=== PATIENT | female | born 1955 | race Caucasian/White ===

== ENCOUNTER 2024-07-09 01:01 | Inpatient (IN) | payer MEDICARE ==
[~2024-07-09] VITALS: Ht 170.2 cm; Wt 63.0 kg
[2024-07-09] MEDS ORDERED: LAMO100T2 PO (01:17)
[2024-07-09] MEDS ORDERED: ASPI-1169 PO (01:17)
[2024-07-09] MEDS ORDERED: TEMA15CA PO (01:17)
[2024-07-09] MEDS ORDERED: TRAZ-182 PO (01:17)
[2024-07-09] MEDS ORDERED: ATOR20TA PO (01:17)
[2024-07-09] MEDS ORDERED: QUET25TA PO (01:17)
[2024-07-09] MEDS: IV NS 0.9% 1,000 ML BAG IV ONE (01:30)
[2024-07-09] MEDS ORDERED: CEFEPIME 1 GM VIAL ONE (01:33)
[2024-07-09] MEDS ORDERED: VANCOMYCIN 1 GM /D5W 250 ML PB IV ONE (01:33)
[2024-07-09] MEDS: CEFEPIME 1 GM in IV D5W 50 ML IV ONE (01:36)
[2024-07-09 01:37] LABS: BASOPHILS % (AUTO) 0.1 % (0.0-2.0); HEMATOCRIT 45 % (33-45); LYMPHOCYTES # (AUTO) 0.5 K/uL (0.8-4.8); LYMPHOCYTES % (AUTO) 2.5 % (20.0-44.0); MEAN CORPUSCULAR HEMOGLOBIN 30 PG (26.0-33.0); MEAN CORPUSCULAR HGB CONC 33 g/dl (31.0-36.0); MEAN CORPUSCULAR VOLUME 91 fL (82-100); MONOCYTES # (AUTO) 1.4 K/uL (0.1-1.30); MONOCYTES % (AUTO) 6.6 % (2.0-12.0); NEUTROPHILS # (AUTO) 19.7 K/uL (1.8-8.9); NEUTROPHILS % (AUTO) 90.8 % (43.0-81.0); PLATELET COUNT (AUTO) 245 K/uL (150-450); RED BLOOD CELL COUNT(AUTO) 4.95 MIL/uL (4.0-5.2); WHITE BLOOD COUNT (AUTO) 21.7 K/uL (4.3-11.0)
[2024-07-09 01:52] LABS: INR 0.97 (0.91-1.10); PARTIAL THROMBOPLASTIN TIME 27.5 SEC (24.3-34.3); PROTHROMBIN TIME 10.3 SECS (9.2-11.1)
[2024-07-09 01:58] LABS: ALANINE AMINOTRANSFERASE 18 U/L (12-78); ALBUMIN 3.5 g/dL (3.4-5.0); ALCOHOL, BLOOD < 3 mg/dL (0-10); ALKALINE PHOSPHATASE 115 U/L (46-116); ASPARTATE AMINOTRANSFERASE 12 U/L (15-37); BILIRUBIN,DIRECT 0.4 mg/dL (0.0-0.2); BILIRUBIN,TOTAL 1.2 mg/dL (0.2-1.0); CALCIUM, SERUM 10.5 mg/dL (8.5-10.1); CARBON DIOXIDE 19 mmol/L (21-32); CHLORIDE 100 mmol/L (98-107); CREATININE 1.1 mg/dL (0.6-1.3); GLUCOSE 228 mg/dL (74-106); POTASSIUM 3.7 mmol/L (3.5-5.1); SALICYLATE 6.5 mg/dL (2.8-20.0); SODIUM SERUM 133 mmol/L (136-145); TOTAL PROTEIN, SERUM 7.1 g/dL (6.4-8.2); UREA NITROGEN, BLOOD 17 mg/dL (7-18)
[2024-07-09 01:59] LABS: ACETAMINOPHEN <10 ug/ml (10-30)
[2024-07-09 02:00] LABS: LACTIC ACID 7.1 mmol/L (0.4-2.0)
[2024-07-09] MEDS: VANCOMYCIN 1 GM in IV D5W 250 ML IV ONE (02:06)
[2024-07-09 02:11] LABS: APPEARANCE,URINE TURBID (CLEAR); BILIRUBIN,URINE 3+ (NEGATIVE); BLOOD, URINE TRACE-INTA Ery/uL (NEGATIVE); COLOR,URINE BROWN (YELLOW); KETONES,URINE 1+ mg/dL (NEGATIVE); LEUKOCYTE ESTERASE ,URINE 1+ (NEGATIVE); NITRITE, URINE POSITIVE (NEGATIVE); PH,URINE 6.5 (5.0-8.0); PROTEIN,URINE 2+ mg/dl (NEGATIVE); UGLUCOSE TRACE mg/dL (NEGATIVE)
[2024-07-09] MEDS ORDERED: IOHEXOL-300 100 ML VIAL IV ONE (02:17)
[2024-07-09 02:22] LABS: ADD URINE CULTURE YES; AMPHETAMINE, URINE NEGATIVE (NEGATIVE); BACTERIA,URINE Few /HPF (None Seen); BARBITURATE, URINE NEGATIVE (NEGATIVE); CALCIUM OXALATE CRYSTALS,UR Many /HPF (None Seen); COARSE GRANULAR CASTS,URINE Moderate /LPF (None Seen); COCCAINE, URINE NEGATIVE (NEGATIVE); OPIATE, URINE NEGATIVE (NEGATIVE); PHENCYCLIDINE SCREEN,URINE NEGATIVE (NEGATIVE); SQUAMOUS EPITHELIAL CELL,UR Few /HPF (None Seen)
[2024-07-09 02:23] LABS: BENZODIAZEPINE, URINE POSITIVE (NEGATIVE); CANNABINOID, URINE POSITIVE (NEGATIVE)
[2024-07-09] MEDS ORDERED: MAGNESIUM HYDROXIDE 30 ML UDC PO PRN (04:00)
[2024-07-09] MEDS ORDERED: ONDANSETRON HCL/PF 4 MG/2 ML VIAL IVP PRN (04:00)
[2024-07-09] MEDS ORDERED: MAG HYDROX/AL HYDROX/SIMETH 30 ML UDC PO PRN (04:00)
[2024-07-09] MEDS ORDERED: ACETAMINOPHEN 325 MG TABLET PO PRN ×2 (04:00→06:30)
[2024-07-09] MEDS ORDERED: CEFEPIME 1 GM in IV D5W 50 ML IV SCH (04:00)
[2024-07-09] MEDS ORDERED: QUET150T4 PO (04:40)
[2024-07-09] MEDS ORDERED: TEMA30CA PO (04:40)
[2024-07-09] MEDS ORDERED: TRAZ150T75 PO (04:40)
[2024-07-09] MEDS ORDERED: LAMO200T10 PO (04:40)
[2024-07-09] MEDS ORDERED: LITH300T3 PO (04:40)
[2024-07-09] MEDS ORDERED: SERT50TA PO (04:40)
[2024-07-09] MEDS ORDERED: ATOR40TA PO (04:40)
[2024-07-09 05:00] VITALS: BP 130/92; TEMP 98.1; O2SAT 96
[2024-07-09 05:45] VITALS: BP 130/92; TEMP 98.1; O2SAT 96
[2024-07-09] MEDS: IV LR 1000 ML 1,000 ML IV SCH (06:34)
[2024-07-09 08:00] VITALS: BP 139/79; TEMP 98.4; O2SAT 99
[2024-07-09] MEDS: VANCOMYCIN 500 MG in IV D5W 100 ML IV ONE (09:51)
[2024-07-09] MEDS: CEFEPIME 1 GM in IV D5W 50 ML IV SCH (09:52)
[2024-07-09] MEDS: SERTRALINE HCL 50 MG TABLET PO SCH (09:53)
[2024-07-09] MEDS: LITHIUM CARBONATE 150 MG CAPSULE PO SCH (09:53)
[2024-07-09] MEDS: PANTOPRAZOLE 40 MG VIAL IV SCH (09:53)
[2024-07-09] MEDS: LamoTRIgine 100 MG TABLET PO SCH (09:53)
[2024-07-09] MEDS: ASPIRIN 81 MG TAB.CHEW PO SCH (09:54)
[2024-07-09] MEDS: ATORVASTATIN 10 MG TABLET PO SCH (09:54)
[2024-07-09 12:00] VITALS: BP 114/92; TEMP 98.2; O2SAT 99
[2024-07-09] MEDS: TEMAZEPAM 15 MG CAPSULE PO SCH (18:29)
[2024-07-09] MEDS: TRAZODONE 50 MG TABLET PO SCH (18:30)
[2024-07-09 20:00] VITALS: BP 126/69; TEMP 97.3; O2SAT 92; O2SAT 95
[2024-07-09] MEDS: QUETIAPINE FUMARATE 25 MG TABLET PO SCH (21:49)
[2024-07-09] MEDS: QUETIAPINE FUMARATE 100 MG TABLET PO SCH (21:49)
[2024-07-10] VITALS: BP_SYST 104; BP_SYST 107; BP_DIAS 62; BP_DIAS 68; TEMP 97.9; TEMP 98.1; O2SAT 95
[2024-07-10 04:00] VITALS: BP 101/58; TEMP 97.9; O2SAT 96
[2024-07-10 08:00] VITALS: BP 115/74; TEMP 97.9; O2SAT 96
[2024-07-10 08:20] LABS: BASOPHILS % (AUTO) 0.4 % (0.0-2.0); EOSINOPHILS # (AUTO) 0.2 K/uL (0.0-0.7); EOSINOPHILS % (AUTO) 1.9 % (0.0-6.0); HEMATOCRIT 33 % (33-45); LYMPHOCYTES # (AUTO) 1.6 K/uL (0.8-4.8); LYMPHOCYTES % (AUTO) 18.4 % (20.0-44.0); MEAN CORPUSCULAR HEMOGLOBIN 31 PG (26.0-33.0); MEAN CORPUSCULAR HGB CONC 34 g/dl (31.0-36.0); MEAN CORPUSCULAR VOLUME 90 fL (82-100); MONOCYTES # (AUTO) 0.8 K/uL (0.1-1.30); MONOCYTES % (AUTO) 9.5 % (2.0-12.0); NEUTROPHILS % (AUTO) 69.8 % (43.0-81.0); PLATELET COUNT (AUTO) 203 K/uL (150-450); RED BLOOD CELL COUNT(AUTO) 3.59 MIL/uL (4.0-5.2); RED CELL DISTRIBUTION WIDTH 13.9 % (11.5-15.0); WHITE BLOOD COUNT (AUTO) 8.6 K/uL (4.3-11.0)
[2024-07-10 09:02] LABS: CALCIUM, SERUM 8.4 mg/dL (8.5-10.1); CREATININE 0.7 mg/dL (0.6-1.3); MAGNESIUM 2.2 mg/dL (1.8-2.4); PHOSPHORUS 2.5 mg/dL (2.5-4.9); POTASSIUM 3.5 mmol/L (3.5-5.1)
[2024-07-10] MEDS: VANCOMYCIN HCL 1.25 GM in IV D5W 250 ML IV SCH (10:22)
[2024-07-10 12:00] VITALS: BP 110/63; TEMP 98.8; O2SAT 97
[2024-07-10 16:19] VITALS: BP 101/50; TEMP 99.1; O2SAT 96
[2024-07-10 20:00] VITALS: BP 99/56; TEMP 98.2; O2SAT 96
[2024-07-10] MEDS: VANCOMYCIN 750 MG in IV D5W 250 ML IV SCH (22:29)
[2024-07-11] VITALS: BP 107/65; TEMP 98.4; O2SAT 97
[2024-07-11 04:00] VITALS: BP 115/68; TEMP 97.9; O2SAT 93
[2024-07-11] MEDS: IV LR 1000 ML 1,000 ML IV PRN (05:57)
[2024-07-11 07:19] LABS: BASOPHILS % (AUTO) 0.7 % (0.0-2.0); EOSINOPHILS # (AUTO) 0.2 K/uL (0.0-0.7); EOSINOPHILS % (AUTO) 3.3 % (0.0-6.0); HEMATOCRIT 33 % (33-45); HEMOGLOBIN 11.1 g/dL (11.5-14.8); LYMPHOCYTES # (AUTO) 1.5 K/uL (0.8-4.8); LYMPHOCYTES % (AUTO) 20.6 % (20.0-44.0); MEAN CORPUSCULAR HEMOGLOBIN 30 PG (26.0-33.0); MEAN CORPUSCULAR HGB CONC 34 g/dl (31.0-36.0); MEAN CORPUSCULAR VOLUME 91 fL (82-100); MONOCYTES # (AUTO) 0.6 K/uL (0.1-1.30); MONOCYTES % (AUTO) 8.4 % (2.0-12.0); NEUTROPHILS # (AUTO) 4.9 K/uL (1.8-8.9); PLATELET COUNT (AUTO) 200 K/uL (150-450); RED BLOOD CELL COUNT(AUTO) 3.64 MIL/uL (4.0-5.2); RED CELL DISTRIBUTION WIDTH 13.9 % (11.5-15.0); WHITE BLOOD COUNT (AUTO) 7.2 K/uL (4.3-11.0)
[2024-07-11 07:23] LABS: MAGNESIUM 2.1 mg/dL (1.8-2.4); PHOSPHORUS 2.6 mg/dL (2.5-4.9)
[2024-07-11 08:00] VITALS: BP 116/67; TEMP 99.7; O2SAT 98
[2024-07-11] MEDS: PANTOPRAZOLE 40 MG TABLET.DR PO SCH (09:00)
[2024-07-11 12:00] VITALS: BP 133/71; TEMP 98.4; O2SAT 96
[2024-07-11 16:00] VITALS: BP 125/67; TEMP 98.4; O2SAT 96
[2024-07-11] MEDS: DICYCLOMINE HCL 10 MG CAPSULE PO SCH (17:49)
[2024-07-11 18:21] LABS: CALCIUM, SERUM 8.3 mg/dL (8.5-10.1); CREATININE 0.8 mg/dL (0.6-1.3); POTASSIUM 3.5 mmol/L (3.5-5.1)
[2024-07-11 20:00] VITALS: BP 128/70; TEMP 97.2; O2SAT 94
[2024-07-12] VITALS: BP 115/55; TEMP 98.1; O2SAT 94
[2024-07-12 04:00] VITALS: BP 119/67; TEMP 97.9; O2SAT 94
[2024-07-12 06:16] LABS: BASOPHILS # (AUTO) 0.1 K/uL (0.0-0.2); BASOPHILS % (AUTO) 0.8 % (0.0-2.0); EOSINOPHILS # (AUTO) 0.3 K/uL (0.0-0.7); EOSINOPHILS % (AUTO) 3.6 % (0.0-6.0); HEMATOCRIT 32 % (33-45); HEMOGLOBIN 10.8 g/dL (11.5-14.8); LYMPHOCYTES # (AUTO) 1.2 K/uL (0.8-4.8); LYMPHOCYTES % (AUTO) 16.2 % (20.0-44.0); MEAN CORPUSCULAR HEMOGLOBIN 30 PG (26.0-33.0); MEAN CORPUSCULAR HGB CONC 34 g/dl (31.0-36.0); MEAN CORPUSCULAR VOLUME 90 fL (82-100); MONOCYTES # (AUTO) 0.6 K/uL (0.1-1.30); MONOCYTES % (AUTO) 7.5 % (2.0-12.0); NEUTROPHILS # (AUTO) 5.3 K/uL (1.8-8.9); NEUTROPHILS % (AUTO) 71.9 % (43.0-81.0); PLATELET COUNT (AUTO) 211 K/uL (150-450); RED BLOOD CELL COUNT(AUTO) 3.55 MIL/uL (4.0-5.2); RED CELL DISTRIBUTION WIDTH 13.7 % (11.5-15.0); WHITE BLOOD COUNT (AUTO) 7.4 K/uL (4.3-11.0)
[2024-07-12 06:29] LABS: CALCIUM, SERUM 8.9 mg/dL (8.5-10.1); CREATININE 0.7 mg/dL (0.6-1.3); POTASSIUM 3.2 mmol/L (3.5-5.1)
[2024-07-12 06:59] LABS: PHOSPHORUS 3.3 mg/dL (2.5-4.9)
[2024-07-12 07:00] VITALS: BP 112/65; TEMP 98.2; O2SAT 95
[2024-07-12] MEDS: POTASSIUM CHLORIDE 20 MEQ TAB.PRT.SR PO SCH (09:55)
[2024-07-12] MEDS ORDERED: ONDA4TAB11 PO (12:58)
[2024-07-12] MEDS ORDERED: DICY10CA37 PO (12:58)
[2024-07-12] MEDS ORDERED: CIPR500T5 PO (12:58)
[2024-07-12] MEDS ORDERED: METR500T PO (12:58)
== END 2024-07-12 14:45 | disposition home or self-care (01) | DRG 872 ==
LOC: ER 01:05 → TELE 04:31 → MED 07-12 10:20
PROVIDERS: ADMIT Student in an Organized Health Care Education/Training Program; ATTEND Nurse Practitioner Family
DX: A41.9 Sepsis, unspecified organism (principal); E87.1 Hypo-osmolality and hyponatremia; E87.20 Acidosis, unspecified; E78.5 Hyperlipidemia, unspecified; K52.9 Noninfective gastroenteritis and colitis, unspecified; F31.9 Bipolar disorder, unspecified; Z20.822 Contact with and (suspected) exposure to COVID-19; Z88.0 Allergy status to penicillin; Z79.899 Other long term (current) drug therapy; Z79.82 Long term (current) use of aspirin; Z95.2 Presence of prosthetic heart valve; Z88.6 Allergy status to analgesic agent; B96.89 Other specified bacterial agents as the cause of diseases classified elsewhere; R65.20 Severe sepsis without septic shock; R91.8 Other nonspecific abnormal finding of lung field
CPT/HCPCS: 36415; 71045-TC; 80048-TC; 80076-TC; 80178-TC; 80202-TC; 81001; 82962-TC; 83605-TC; 83735-TC; 84100-TC; 84439-TC; 84443-TC; 84484-TC; 85025-TC; 85730-TC; 87040-TC; 87086-TC; A4223; A6253; G0378; G0480; J0692; J2470; J3370; J3371; J7030; J7050; J7060; J7120; Q9967